=== PATIENT | male | born 1990 | race Hispanic/Latino ===

== ENCOUNTER 2019-08-24 19:40 | Emergency (ER) | payer BC | END 2019-08-24 20:02 | disposition home or self-care (01) | LOC: ERS 19:40 | DX: T63.441A Toxic effect of venom of bees, accidental (unintentional), initial encounter (principal) | CPT/HCPCS: 99282 ==

== ENCOUNTER 2020-01-20 15:31 | Emergency (ER) | payer BC ==
[~2020-01-20 15:31] MED LIST: Iopamidol-370 76% 500 ML 1 ML ONE
[2020-01-20] MEDS ORDERED: Lidocaine 1% w/Epinephrine 1:100K 20 ML VIAL ONE (15:40)
[2020-01-20] MEDS ORDERED: Bacitracin 1 PK ONE (15:40)
[2020-01-20] MEDS ORDERED: Morphine 4 MG/ML VIAL ONE (15:46)
[2020-01-20] MEDS ORDERED: Boostrix 0.5 ML (Tdap) VIAL ONE (15:57)
[2020-01-20] MEDS ORDERED: Ondansetron PF 4 MG/2 ML Vial ONE (15:57)
[2020-01-20 16:07] LABS: #Basophils 0.1 thou/uL (0.0-0.2); #Eosinphils 0.1 thou/uL (0.0-0.7); #Lymphocytes 1.9 thou/uL (1.20-3.40); #Monocytes 0.4 thou/uL (0.11-0.59); #Neutrophils 3.1 thou/uL (1.40-6.50); %Eosinophils 1.8 % (0.0-10.0); %Lymphocytes 33.9 % (21.0-51.0); %Monocytes 7.4 % (0.0-10.0); %Neutrophils 55.9 % (42.0-75.0); Hemoglobin 15.4 g/dL (14.0-18.0); Mean Corpuscular HGB CONC 34.6 g/dL (32.0-36.0); Mean Corpuscular Hemoglobin 30.8 pg (27.0-31.0); Mean Platelet Volume 8.2 fL (7.4-10.4); Platelet Count 261 thou/uL (130-400); RBC Distribution Width 11.8 % (11.5-14.5); Red Blood Cell (RBC) Count 5.02 mill/uL (4.70-6.10); White Blood Cell (WBC) Count 5.5 thou/uL (4.8-10.8)
[2020-01-20 16:24] LABS: Anion Gap 16 mmol/L (10-20); BUN (Urea Nitrogen) 14 mg/dL (8.9-20.6); Calc. Creatinine Clearance 0 mL/min (70-130); Calcium 9.3 mg/dL (7.8-10.44); Carbon Dioxide 23 mmol/L (22-29); Chloride 105 mmol/L (98-107); Estimated GFR-MDRD 83; Glucose 106 mg/dL (70-105); Potassium 3.8 mmol/L (3.5-5.1); Sodium 140 mmol/L (136-145)
--- NOTE | 2020-01-20 17:01 | CT ---
CT ANGIOGRAM NECK WITH CONTRAST: DATE: 01/20/2020 HISTORY: 29-year-old male status post acute traumatic neck laceration. TECHNIQUE: After IV contrast injection, arterial bolus chasing technique scan performed from 3.5 cm inferior to prachi to sella turcica Coronal and sagittal 3-D MIP reconstructions. FINDINGS: Lung apices are grossly clear. There is focal region of fat stranding in the subcutaneous fat superficial to the right platysma musc le, near the right submandibular region. There is thickening of the right platysma muscle there. There is a tiny bubble of gas along the platysma near the mandibular body. There is no evidence of ma ndibular fracture or cervical spine fracture. The cervical spine is normal. There is no evidence of dissection, stenosis, or rupture, of the vertebral, common carotid, internal carotid, or external carotid, arteries. The larynx and thyroid gland appear unremarkable. No pathology involving submandibular, parotid, carotid, parapharyngeal, pharyngeal mucosal, retrophar yngeal, apprentice cook, or posterior cervical, spaces. Aortic arch, brachiocephalic artery, and left subclavian artery, are also normal. Right subclavian artery is obscured by streak artifact from adjacent dense contrast bolus in right sexton bclavian vein. IMPRESSION: 1) all major arteries are intact. 2) acute, traumatic soft tissue contusion and laceration in the right submandibular subcutaneous fat and adjacent platysma muscle.
--- NOTE | 2020-01-20 17:11 | CT ---
CT maxillofacial noncontrast: 01/20/2020 HISTORY: Acute traumatic injury to the face FINDINGS: There is no fracture of the mandible, maxilla, zygomatic arches, pterygoid plates, orbits, or nasal b one. There is a focal region of fat stranding representing contusion located superficial and inferior to t he platysma muscle adjacent to the body of the right mandible. The right platysma muscle is thickened in that region. There is a tiny bubble of gas along the platysma near the mandible that may indicate laceration. Deep to the platysma muscle, there is mild fat stranding consistent with contusion in the right subma ndibular space. There is also fat stranding consistent with edema in the superficial subcutaneous fat lateral to the parotid glands bilaterally, right greater than left, with skin thickening. No large hematoma. 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 The paranasal sinuses and the orbits, as well as bilateral tympanomastoid cavities, are clear. The TM Js are intact. IMPRESSION: 1.) Acute, traumatic, soft tissue contusion in the subcutaneous fat superficial to the right submandi bular platysma muscle, and mild contusion in the right submandibular space itself. 2) no fracture.
== END 2020-01-20 18:23 | disposition home or self-care (01) ==
LOC: ERS 15:31
DX: S11.91XA Laceration without foreign body of unspecified part of neck, initial encounter (principal); W22.8XXA Striking against or struck by other objects, initial encounter
CPT/HCPCS: 12001; 70486; 70498; 80048; 85025; 90471; 90715; 96374; 96375; J2270; J2405; Q9967

== ENCOUNTER 2021-12-06 22:49 | Emergency (ER) | payer BC ==
[2021-12-07] MEDS ORDERED: Ketorolac Tromethamine 30 MG/ML VIAL ONE (00:03)
[2021-12-07] MEDS ORDERED: Lidocaine 4% Cream 5 GM TUBE w/ Tegaderm ONE (00:07)
[2021-12-07] MEDS ORDERED: Bupivacaine 0.25% 10 ML VIAL ONE (00:28)
[2021-12-07] MEDS ORDERED: Bacitracin 1 PK ONE (01:04)
== END 2021-12-07 01:10 | disposition home or self-care (01) ==
LOC: ERS 22:49
DX: L60.0 Ingrowing nail (principal)
CPT/HCPCS: 11750; 96372; J1885; S0020